=== PATIENT | female | born 1950 | race Caucasian/White ===

== ENCOUNTER 2021-10-30 13:29 | Outpatient (CLI) | payer MEDICARE, OTHER | END 2021-10-30 13:30 | disposition home or self-care (01) | LOC: BICMRI 13:29 | PROVIDERS: ATTEND Surgery | DX: M48.061 Spinal stenosis, lumbar region without neurogenic claudication (principal); M51.36 Other intervertebral disc degeneration, lumbar region; M47.816 Spondylosis without myelopathy or radiculopathy, lumbar region; G95.19 Other vascular myelopathies; M41.9 Scoliosis, unspecified | CPT/HCPCS: 72110; 72148 ==

== ENCOUNTER 2024-03-31 11:37 | Outpatient (CLI) | payer MEDICARE, OTHER | END 2024-03-31 11:38 | disposition home or self-care (01) | LOC: SCSRAD 11:37 | PROVIDERS: ATTEND Nurse Practitioner Family | DX: M47.816 Spondylosis without myelopathy or radiculopathy, lumbar region (principal) | CPT/HCPCS: 72100 ==

== ENCOUNTER → 2024-09-08 | Day surgery (SDC) | payer MEDICARE, OTHER | LOC: ULT 12:44 | PROVIDERS: ATTEND Otolaryngology Plastic Surgery within the Head & Neck | PROC: 0G9H3ZZ Drainage of Right Thyroid Gland Lobe, Percutaneous Approach (ICD-10-PCS; principal; 2024-09-08) | DX: E04.1 Nontoxic single thyroid nodule (principal) | CPT/HCPCS: 10005; 88173; 88305 ==